=== PATIENT | male | born 1965 | race Caucasian/White ===

== ENCOUNTER → 2016-07-14 | Outpatient (CLI) | payer OTHER ==
[~2016-07-14] MED LIST: OPTIRAY 320 IV PRN; PARO10TA PO; ZNTT/150 PO
--- NOTE | 2016-07-14 14:43 | DIAGNOSTIC IMAGING REPORT ---
ABDOMEN AND PELVIS CT WITH IV AND ORAL CONTRAST CT DOSE: 340.38 mGy.cm HISTORY: Pain R10.9 Abdominal painR93.5 Abnormal abdominal x-ray R/O ENTEROCOLIC TECHNIQUE: Multiaxial CT images of the abdomen and pelvis were performed following the use of intravenous and oral contrast. COMPARISON STUDY: 11/06/2013 FINDINGS: Lung bases are clear. Several small hepatic cysts are nonprogressive and stable. Spleen is unremarkable. Pancreas is uniform throughout. Kidneys enhance appropriately. No evidence for hydronephrosis. Intrarenal glands are unremarkable. Bowel pattern is nonobstructive. There are several mesenteric nodes unchanged in the prior study. There is slight bladder wall thickening. There is no significant pelvic or inguinal santino change. Several scattered colonic diverticuli with no evidence for diverticulitis. IMPRESSION: Chronic change. No acute process. No major change from the prior study. Electronically signed by: Eliud Salazar M.D. 07/14/2016 2:42 PM Dictated Date/Time: 07/14/2016 2:36 PM
== END | disposition home or self-care (01) ==
LOC: C.CTS 12:10
PROVIDERS: ATTEND Nurse Practitioner
DX: R10.9 Unspecified abdominal pain (principal); R93.5 Abnormal findings on diagnostic imaging of other abdominal regions, including retroperitoneum

== ENCOUNTER → 2017-02-26 | Outpatient (CLI) | payer OTHER ==
[~2017-02-26] MED LIST changes: -OPTIRAY 320 IV PRN
[2017-02-26 18:37] LABS: BLOOD UREA NITROGEN 9 mg/dl (7-18); BUN/CREATININE RATIO 7.5 (10-20); CARBON DIOXIDE 26 mmol/L (21-32); CHLORIDE 106 mmol/L (98-107); CHOLESTEROL 216 mg/dl (0-200); GLUCOSE 87 mg/dl (70-99); POTASSIUM 3.9 mmol/L (3.5-5.1); SODIUM 140 mmol/L (136-145)
[2017-02-26 18:41] LABS: CHOLESTEROL/HDL RATIO 3.4; HDL CHOLESTEROL 64 mg/dl; LDL CHOLESTEROL CALCULATED 129 mg/dl; TRIGLYCERIDES 117 mg/dl (0-150); VERY LOW DENSITY LIPOPROT CALC 23 mg/dl
== END | disposition home or self-care (01) ==
LOC: C.LABPVFM 16:12
PROVIDERS: ATTEND Nurse Practitioner
DX: Z13.220 Encounter for screening for lipoid disorders (principal); Z13.1 Encounter for screening for diabetes mellitus